=== PATIENT | male | born 1990 | race Caucasian/White ===

== ENCOUNTER 2017-05-10 21:56 | Emergency (ER) | payer OTHER ==
[2017-05-10 22:39] LABS: HEMATOCRIT 43.7 % (42.0-52.0); MEAN CORPUSCULAR HGB CONC 34.3 g/dl (32.0-36.5); MEAN CORPUSCULAR VOLUME 87.4 fl (80.0-96.0); PLATELET COUNT, AUTOMATED 220 10^3/uL (150-450); RED CELL DISTRIBUTION WIDTH 12.4 % (11.5-14.5)
[2017-05-10 22:59] LABS: AMPHETAMINES LEVEL URINE NEGATIVE (NEGATIVE); BARBITURATES URINE NEGATIVE (NEGATIVE); BENZODIAZEPINES URINE NEGATIVE (NEGATIVE); CANNABINOIDS URINE NEGATIVE (NEGATIVE); COCAINE METABOLITE URINE NEGATIVE (NEGATIVE); METHADONE URINE NEGATIVE (NEGATIVE); OPIATES URINE NEGATIVE (NEGATIVE); PHENCYCLIDINE URINE NEGATIVE (NEGATIVE)
[2017-05-10 23:10] LABS: ALBUMIN 4.6 GM/DL (3.2-5.2); ALBUMIN/GLOBULIN RATIO 1.39 (1.00-1.93); ALKALINE PHOSPHATASE 91 U/L (45-117); ALT/SGPT 22 U/L (12-78); ANION GAP 8 MEQ/L (8-16); AST/SGOT 18 U/L (7-37); BILIRUBIN,DIRECT 0.2 MG/DL (0.0-0.2); BILIRUBIN,TOTAL 0.6 MG/DL (0.2-1.0); BLOOD UREA NITROGEN 16 MG/DL (7-18); CALCIUM LEVEL 8.2 MG/DL (8.5-10.1); CARBON DIOXIDE LEVEL 27 MEQ/L (21-32); CHLORIDE LEVEL 108 MEQ/L (98-107); CREATININE FOR GFR 1.22 MG/DL (0.70-1.30); ETHYL ALCOHOL (ETHANOL) 0.242 % (0.000-0.010); GLOMERULAR FILTRATION RATE > 60.0 (>60); GLUCOSE, FASTING 110 MG/DL (70-105); POTASSIUM SERUM 4.1 MEQ/L (3.5-5.1); SALICYLATE LEVEL < 1.7 MG/DL (5.0-30.0); SODIUM LEVEL 143 MEQ/L (136-145); TOTAL PROTEIN 7.9 GM/DL (6.4-8.2)
[2017-05-10 23:12] LABS: ACETAMINOPHEN LEVEL < 2.0 UG/ML (10.0-30.0)
== END 2017-05-11 05:36 | disposition home or self-care (01) ==
LOC: M ED 05-11 05:36
DX: F10.129 Alcohol abuse with intoxication, unspecified (principal); F41.9 Anxiety disorder, unspecified; F32.9 Major depressive disorder, single episode, unspecified; F17.200 Nicotine dependence, unspecified, uncomplicated
CPT/HCPCS: G0480

== ENCOUNTER → 2017-07-23 | Outpatient (CLI) | payer OTHER | LOC: M SMT 13:40 | DX: N50.812 Left testicular pain (principal); N43.3 Hydrocele, unspecified; N50.3 Cyst of epididymis ==

== ENCOUNTER 2017-11-22 00:32 | Inpatient (IN) | payer OTHER ==
[2017-11-22 02:10] LABS: HEMATOCRIT 40.9 % (42.0-52.0); HEMOGLOBIN 14.2 g/dl (13.5-17.5); MEAN CORPUSCULAR HEMOGLOBIN 30.2 pg (27.0-33.0); MEAN CORPUSCULAR HGB CONC 34.7 g/dl (32.0-36.5); PLATELET COUNT, AUTOMATED 216 10^3/uL (150-450); RED CELL DISTRIBUTION WIDTH 12.3 % (11.5-14.5); WHITE BLOOD COUNT 7.8 10^3/uL (4.0-10.0)
[2017-11-22 02:29] LABS: AMPHETAMINES LEVEL URINE NEGATIVE (NEGATIVE); BARBITURATES URINE NEGATIVE (NEGATIVE); BENZODIAZEPINES URINE NEGATIVE (NEGATIVE); CANNABINOIDS URINE NEGATIVE (NEGATIVE); COCAINE METABOLITE URINE NEGATIVE (NEGATIVE); METHADONE URINE NEGATIVE (NEGATIVE); OPIATES URINE NEGATIVE (NEGATIVE); PHENCYCLIDINE URINE NEGATIVE (NEGATIVE)
[2017-11-22 02:38] LABS: ALBUMIN/GLOBULIN RATIO 1.29 (1.00-1.93); ALKALINE PHOSPHATASE 74 U/L (45-117); ALT/SGPT 22 U/L (12-78); ANION GAP 10 MEQ/L (8-16); AST/SGOT 16 U/L (7-37); BILIRUBIN,DIRECT 0.2 MG/DL (0.0-0.2); BILIRUBIN,TOTAL 0.9 MG/DL (0.2-1.0); BLOOD UREA NITROGEN 8 MG/DL (7-18); CARBON DIOXIDE LEVEL 26 MEQ/L (21-32); CHLORIDE LEVEL 108 MEQ/L (98-107); CREATININE FOR GFR 1.13 MG/DL (0.70-1.30); ETHYL ALCOHOL (ETHANOL) 0.288 % (0.000-0.010); GLOMERULAR FILTRATION RATE > 60.0 (>60); GLUCOSE, FASTING 98 MG/DL (70-100); POTASSIUM SERUM 3.7 MEQ/L (3.5-5.1); SALICYLATE LEVEL < 1.7 MG/DL (5.0-30.0); SODIUM LEVEL 144 MEQ/L (136-145); TOTAL PROTEIN 7.1 GM/DL (6.4-8.2)
[2017-11-22 02:39] LABS: ACETAMINOPHEN LEVEL < 2.0 UG/ML (10.0-30.0)
[2017-11-22] MEDS: DULoxetine 20 MG CAP (CYMBALTA) PO (11:55)
[2017-11-22] MEDS ORDERED: MOM 30ML SUSPENSION UDC PO (13:00)
[2017-11-22] MEDS ORDERED: LORazepam 2 MG TAB PO (13:00)
[2017-11-22] MEDS ORDERED: MAALOX 30 ML SUSP *UDC PO (13:00)
[2017-11-22] MEDS ORDERED: ACETAMINOPHEN TAB 650MG DOSE (2X325MG) PO (13:00)
[2017-11-22] MEDS: NICOTINE 7 MG/24 HR TRANSDERMAL TD (14:57)
[2017-11-22] MEDS: FOLIC ACID 1 MG TAB PO (14:57)
[2017-11-22] MEDS: THIAMINE 100 MG TAB PO ×2 (14:57→21:15)
[2017-11-22] MEDS: MULTIVITAMINS/MINERALS THERAP 1 TAB PO (14:57)
[2017-11-22] MEDS: traZODone 50 MG TAB PO (21:15)
[2017-11-23] MEDS: MULTIVITAMINS/MINERALS THERAP 1 TAB PO (08:19)
[2017-11-23] MEDS: THIAMINE 100 MG TAB PO ×2 (08:19→20:56)
[2017-11-23] MEDS: NICOTINE 7 MG/24 HR TRANSDERMAL TD (08:19)
[2017-11-23] MEDS: FOLIC ACID 1 MG TAB PO (08:19)
[2017-11-23] MEDS: DULoxetine 20 MG CAP (CYMBALTA) PO (14:03)
[2017-11-23] MEDS: traZODone 50 MG TAB PO (20:56)
[2017-11-24] MEDS: NICOTINE 7 MG/24 HR TRANSDERMAL TD (08:26)
[2017-11-24] MEDS: THIAMINE 100 MG TAB PO (08:29)
[2017-11-24] MEDS: DULoxetine 20 MG CAP (CYMBALTA) PO (08:29)
[2017-11-24] MEDS: FOLIC ACID 1 MG TAB PO (08:30)
[2017-11-24] MEDS: MULTIVITAMINS/MINERALS THERAP 1 TAB PO (08:30)
== END 2017-11-24 10:50 | disposition home or self-care (01) | DRG 881 ==
LOC: M ED 00:32 → M ED INP 12:49 → M PSY 13:36
DX: F32.9 Major depressive disorder, single episode, unspecified (principal); F10.94 Alcohol use, unspecified with alcohol-induced mood disorder; F17.210 Nicotine dependence, cigarettes, uncomplicated